=== PATIENT | male | born 1980 | race Caucasian/White ===

== ENCOUNTER 2019-10-20 19:11 | Emergency (ER) | payer OTHER, BC ==
[2019-10-20] MEDS ORDERED: CHLORHEXIDINE GLUCONATE 4 % 15 ML UD TOP ONE (20:34)
[2019-10-20] MEDS ORDERED: NEOMYCIN-BACITRACIN-POLYMYXIN 0.9 GM UD TOP ONE (20:35)
[2019-10-20] MEDS ORDERED: LIDOCAINE 1% W/ EPINEPHRINE 20 ML VIAL INJ ONE (20:43)
[2019-10-20] MEDS ORDERED: TETANUS,DIPHTHERIA,PERTUSSIS 1 EA SYG IM ONE (20:52)
[2019-10-20 21:25] VITALS: O2SAT 99
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
[2019-10-20 22:35] VITALS: BP 134/84; TEMP 98.5
== END 2019-10-20 22:15 | disposition home or self-care (01) ==
LOC: ER 19:11
DX: S01.01XA Laceration without foreign body of scalp, initial encounter (principal); S00.93XA Contusion of unspecified part of head, initial encounter; S91.112A Laceration without foreign body of left great toe without damage to nail, initial encounter; S90.112A Contusion of left great toe without damage to nail, initial encounter; F17.200 Nicotine dependence, unspecified, uncomplicated; V87.7XXA Person injured in collision between other specified motor vehicles (traffic), initial encounter; Y92.410 Unspecified street and highway as the place of occurrence of the external cause